=== PATIENT | female | born 1955 | race Caucasian/White ===

== ENCOUNTER 2016-08-05 14:16 | Emergency (ER) | payer BC ==
--- NOTE | 2016-08-05 15:17 | ER NURSING DOCUMENTATION ---
Nurse's Notes [facility] Name:Di Matthews Age:61 yrs Sex:Female :1955 Arrival Date:08/05/2016 Time:14:16 Bed5 Private MD: Diagnosis:Drug Rash Presentation: 08/05 14:19 Acuity: JEN 4 tg 14:24 Presenting complaint:. tg 15:14 Transition of care: patient was not received from another setting of care. Onset: The tg symptoms/episode began/occurred gradually, 2 day(s) ago. Anaphylaxis evaluation, no signs or symptoms of anaphylaxis were noted. 15:14 Method Of Arrival: Private Vehicle tg Triage Assessment: 14:53 General: Appears uncomfortable, Behavior is cooperative, pleasant. Neuro: Level of tg Consciousness is awake, alert. Cardiovascular: No deficits noted. Respiratory: Airway is patent larygectomy stoma. Derm: Rash noted that is itchy, red, raised, on entire body. Historical: - Allergies: Clindamycin (Rash); - Home Meds: 1. levothyroxine oral - PMHx: THYROID PROBLEM; larangeal CA; - PSHx: HYSTERECTOMY; laryngectomy; - Tetanus: < 10 years. - Ebola Screening: : Patient negative for fever greater than or equal to 101.5 degrees Fahrenheit, and additional compatible Ebola Virus Disease symptoms. Patient denies exposure to infectious person. Patient denies travel to an Ebola-affected area in the 21 days before illness onset. No symptoms or risks identified at this time. . - Immunization history: Flu Vaccine >1 year. - Social history: Smoking status: Patient states former smoker of tobacco. Screenin:56 Infectious Disease Risk Unable to Obtain. Abuse screen: Denies threats or abuse. Denies tg injuries from another. Nutritional screening: No deficits noted. Vital Signs: 14:22 BP 90 / 70; Pulse 64; Resp 12; Temp 98.6(O); Pulse Ox 95% on R/A; Weight 78.02 kg (R); arc Height 5 ft. 7 in. (170.18 cm) (R); Pain 0/10; 15:15 BP 102 / 81; Pulse 74; Resp 15; Pulse Ox 93% on R/A; tg 14:22 Body Mass Index 26.94 (78.02 kg, 170.18 cm) arc ED Course: 14:17 Patient arrived in ED. em3 14:19 Triage completed. tg 14:24 Amor Keith, RN is Primary Nurse. tg 14:38 Avtar Rosenberg MD is Attending Physician. tl1 14:56 Valuables Remains with patient. tg Administered Medications: No medications were administered Outcome: 14:54 Discharge ordered by . tl1 15:15 Discharged to home ambulatory. tg 15:15 Condition: stable 15:15 Instructed on discharge instructions, follow up and referral plans. medication usage, Prescriptions given X 1. 15:16 Patient left the ED. tg 08/06 13:32 Discharge F/U Call: Unable to reach: left voicemail: ke Signatures: Amor Keith, RN RN Mani Johnson em3 Avtar Rosenberg MD MD tl1 Mar Olvera, Reg [facility] [place] Francoise Del Real, RN RN ke
--- NOTE | 2016-08-05 15:17 | ER PHYSICIAN DOCUMENTATION ---
Physician Documentation [facility] Name:Di Matthews Age:61 yrs Sex:Female :1955 Arrival Date:08/05/2016 Time:14:16 Bed5 Private MD: Avtar Le Disposition: 08/05 20:32 Chart complete. tl1 Disposition: 08/05/16 14:54 Discharged to Home/Self Care. Impression: Drug Rash. - Condition is Good. - Discharge Instructions: ALLERGIC REACTION, Other (Local). - Prescriptions for Prednisone 20 mg Oral Tablet - take 2 tablet by ORAL route once daily for 5 days; 10 tablet. - Medical Reconciliation form form. - Follow up: Private Physician; When: 2 - 3 days; Reason: Recheck today's complaints, Continuance of care. - Problem is new. - Symptoms have improved. - Notes: TAKEZYRTEC AND PEPCID FOR THE RASH. STOP TAKING CLINDAMYCIN RETURN FOR FEVER, SPREADING REDNESS OR IF WORSE IN ANY WAY. CALL DR CHANDA PARKER [phone] TO MAKE AN APPOINTMENT TO BE SEEN [place]. HPI: 14:38 This 61 yrs old Female presents to ER with complaints of Rash. tl1 14:50 In April she was bitten by a cat. She developed a chronic sore on her right wrist. tl1 About 2 weeks ago she was stated on augmentin for this. A subsequent culture led to a change of antibiotics to clindamycin about a week ago. 2 days ago she developed a red itchy rash that is now nearly confluent. She denies f/c/s, dyspnea, n/v, abdominal pain, throat tightness.. Historical: - Allergies: Clindamycin (Rash); - Home Meds: 1. levothyroxine oral - PMHx: THYROID PROBLEM; larangeal CA; - PSHx: HYSTERECTOMY; laryngectomy; - Tetanus: < 10 years. - Ebola Screening: : Patient negative for fever greater than or equal to 101.5 degrees Fahrenheit, and additional compatible Ebola Virus Disease symptoms. Patient denies exposure to infectious person. Patient denies travel to an Ebola-affected area in the 21 days before illness onset. No symptoms or risks identified at this time. . - Immunization history: Flu Vaccine >1 year. - Social history: Smoking status: Patient states former smoker of tobacco. ROS: 14:50 Skin: Positive for lesions, rash. tl1 14:50 All other systems are negative. Exam: 14:50 Constitutional: This is a well developed, well nourished patient who is awake, alert, tl1 and in no acute distress. Head/Face: Normocephalic, atraumatic. Eyes: Pupils equal round and reactive to light, extra-ocular motions intact. Lids and lashes normal. Conjunctiva and sclera are non-icteric and not injected. Cornea within normal limits. Periorbital areas with no swelling, redness, or edema. Respiratory: Lungs have equal breath sounds bilaterally, clear to auscultation and percussion. No rales, rhonchi or wheezes noted. No increased work of breathing, no retractions or nasal flaring. 14:50 Abdomen/GI: Soft, non-tender, with normal bowel sounds. No distension or tympany. No tl1 guarding or rebound. No evidence of tenderness throughout. 14:50 Skin: rash a moderate rash is noted, rash can be described as erythematous, macular, plaque-like, drug rash, and is diffusely located, She also has a roughly 4 cm granulomatous lesion with a central scab and a heaped up periphery on the distal dorsal aspect of her right forearm.. Vital Signs: 14:22 BP 90 / 70; Pulse 64; Resp 12; Temp 98.6(O); Pulse Ox 95% on R/A; Weight 78.02 kg (R); arc Height 5 ft. 7 in. (170.18 cm) (R); Pain 0/10; 15:15 BP 102 / 81; Pulse 74; Resp 15; Pulse Ox 93% on R/A; tg 14:22 Body Mass Index 26.94 (78.02 kg, 170.18 cm) arc MDM: 14:38 Patient medically screened. tl1 15:00 Data reviewed: vital signs, nurses notes, and as a result, I will discharge patient. tl1 Counseling: I had a detailed discussion with the patient and/or guardian regarding: the historical points, exam findings, and any diagnostic results supporting the discharge/admit diagnosis, the need for outpatient follow up, for a referral to a specialist, a elastic yarn twister helper, to return to the emergency department if symptoms worsen or persist or if there are any questions or concerns that arise at home. Response to treatment: There is no appreciated change of the patient's symptoms at this time, and as a result, I will discharge patient. Special discussion: She should stop the clinda. She can try zyrtec, pepcid and prednisone for the rash. She should see a elastic yarn twister helper while she is in [place] this week. I suggested Dr Parker. This does not look to me like a bacterial lesion on her right wrist. She may need a biopsy.. ED course: No change. Dispensed Medications: No medications were administered Signatures: Amor Keith, MONO RN tg Avtar Rosenberg MD MD tl1
== END 2016-08-05 15:16 | disposition home or self-care (01) ==
LOC: ER 14:16
DX: T36.8X5A Adverse effect of other systemic antibiotics, initial encounter (principal); L27.0 Generalized skin eruption due to drugs and medicaments taken internally; L98.9 Disorder of the skin and subcutaneous tissue, unspecified; Z85.21 Personal history of malignant neoplasm of larynx; Z90.02 Acquired absence of larynx; Z79.899 Other long term (current) drug therapy
CPT/HCPCS: 99282